=== PATIENT | male | born 1950 | race Caucasian/White ===

== ENCOUNTER → 2017-03-08 | Outpatient (CLI) | payer OTHER ==
[~2017-03-08] MED LIST: AMLO-110 PO; ATEN50TA8 PO; LEVO150T9 PO; PRLSR20 PO
== END | disposition home or self-care (01) ==
LOC: C.LABSPEC 17:48
DX: K13.0 Diseases of lips (principal)

== ENCOUNTER 2017-04-04 05:10 | Day surgery (SDC) | payer OTHER ==
[2017-03-26 14:18] VITALS: BMI 25.0
--- NOTE | 2017-03-26 14:50 | PAT Medication Instructions ---
Service Date March 26, 2017. Current Home Medication List Amlodipine (Norvasc), 5 MG PO QPM Atenolol (Tenormin), 50 MG PO QPM Levothyroxine Sodium (Levothyroxine Sodium), 1 TAB PO QAM Omeprazole (Prilosec), 20 MG PO BID Medication Instructions For Your Scheduled Surgery - Take the following medications the morning of surgery with a sip of water: Omeprazole (Prilosec), 20 MG PO BID Levothyroxine Sodium (Levothyroxine Sodium), 1 TAB PO QAM - Take the following medications as scheduled the night before surgery: Omeprazole (Prilosec), 20 MG PO BID .Amlodipine (Norvasc), 5 MG PO QPM Atenolol (Tenormin), 50 MG PO QPM If you have any questions please call us at [phone] or [phone] ( [place]) or [phone]
[2017-03-26 15:20] LABS: BASO % 0.3 %; BASO ABS # 0.03 K/uL (0-0.2); COMPLETE YES; HEMATOCRIT 44.7 % (42-52); IG% 0.2 %; LYMPH % 10.9 %; LYMPH ABS # 0.95 K/uL (1.2-3.4); MEAN CELL VOLUME 99.8 fL (80-100); MEAN CORPUSCULAR HEMOGLOBIN 32.1 pg (25-34); MEAN CORPUSCULAR HGB CONC 32.2 g/dl (32-36); MEAN PLATELET VOLUME 10.3 fL (7.4-10.4); MONO % 15.6 %; PLATELET COUNT 186 K/uL (130-400); RED BLOOD COUNT 4.48 M/uL (4.7-6.1)
[2017-03-26 15:56] LABS: BUN/CREATININE RATIO 21.1 (10-20); CALCIUM 9.4 mg/dl (8.5-10.1); CREATININE 0.66 mg/dl (0.60-1.40); POTASSIUM 4.8 mmol/L (3.5-5.1)
[~2017-04-04] VITALS: Ht 182.9 cm; Wt 85.3 kg
[2017-04-04 05:38] VITALS: BP 165/77; PULSE 69; TEMP 36.6; O2SAT 96; Ht 182.9 cm; Wt 85.3 kg
[2017-04-04] MEDS ORDERED: CEFAZOLIN 2000 MG/60 ML D5W IV SCH (06:00)
[2017-04-04] MEDS ORDERED: LACTATED RINGER'S 1000ML 1,000 ML IV SCH (06:00)
[2017-04-04] MEDS ORDERED: FENTANYL CITRATE INJ 50 MCG/1 ML 2 ML VIAL ONE ×2 (06:23→08:21)
[2017-04-04] MEDS ORDERED: PROPOFOL IV EMULSION 10 MG/ML 20 ML VIAL IV ONE ×3 (06:23→08:09)
[2017-04-04] MEDS ORDERED: MIDAZOLAM HCL 1 MG/ML 2ML VIAL ONE (06:23)
--- NOTE | 2017-04-04 06:33 | History & Physical Bridge Note ---
H&P Re-Evaluation Bridge Note: I have examined the patient, reviewed the History & Physical and in the interval since the performance of the History & Physical I have noted the following changes of clinical significance: No changes noted
[2017-04-04] MEDS ORDERED: LIDOCAINE/EPINEPHRINE 1% 20 ML VIAL ONE (07:07)
[2017-04-04] MEDS ORDERED: DEXAMETHASONE SOD INJ 4 MG/ML VIAL ONE (07:39)
[2017-04-04] MEDS ORDERED: ONDANSETRON INJ 2 MG/ML 2 ML VIAL ONE (07:39)
[2017-04-04] MEDS ORDERED: LIDOCAINE HCL 2% 2 ML VIAL (20MG/ML) ONE (07:39)
[2017-04-04] MEDS ORDERED: EpHEDrine SULFATE INJ 50 MG/ML AMP ONE (07:52)
[2017-04-04] MEDS ORDERED: KETAMINE HCL INJ 50 MG/ML 10 ML VIAL ONE (08:02)
[2017-04-04] MEDS ORDERED: BACITRACIN OINT 15 GM TUBE ONE (08:13)
--- NOTE | 2017-04-04 08:41 | [facility] Operative Report ---
Operative Report Operative Date April 04, 2017. Pre-Operative Diagnosis Left lower lip lesion Post-Operative Diagnosis SAME Procedure(s) Performed EXCISION OF LEFT LOWER LIP LESION WITH MUCOSAL ADVANCEMENT CLOSURE Surgeon DR Lokesh Briggs Curriculum Development Manager Surgeon(s) Jennifer Flores PA-C Estimated Blood Loss 10ML Findings 1.5CM LEFT LOWER LIP MUCOSAL LESION; NEGATIVE FROZEN MARGINS Specimens Frozen 1: Left lower lip incisional biopsy-deep margin Frozen 2: Left lower lip incisional biopsy-lateral margin Frozen 3: Left lower lip incisional biopsy-medial margin Frozen 4: Left lower lip incisional biopsy-superior margin Frozen 5: Left lower lip incisional biopsy-Inferior margin A: Left lower lip incisional biopsy,double silk tie -medial margin, single silk tie-lateral margin, double vicryl tie-superior margin, single vicryl tie-inferior margin I attest to the content of the Intraoperative Record and any orders documented therein. Any exceptions are noted below.
--- NOTE | 2017-04-04 08:43 | Discharge Instructions ---
Discharge Instructions Date of Service April 04, 2017. Admission Reason for Admission: Lip Lesion Discharge Discharge Diagnosis / Problem: SAME Discharge Goals Goal(s): Therapeutic intervention Activity Recommendations Activity Limitations: as noted below LIGHT ACTIVITY FOR 1 WEEK; NO DRIVING WHILE ON NORCO . Current Hospital Diet Patient's current hospital diet: Discharge Diet Recommended Diet: Regular Diet Diet Texture: Dental Soft (bite-sized) Procedures Procedures Performed: Left Lower Lip Lesion Excisional Biopsy Pending Studies Studies pending at discharge: no Medical Emergencies . Who to Call and When: Medical Emergencies: If at any time you feel your situation is an emergency, please call 911 immediately. . Non-Emergent Contact Non-Emergency issues call your: Surgeon . . "Provider Documentation" section prepared by Lokesh Briggs. . VTE Core Measure Inpt VTE Proph given/why not?: SCD's
[2017-04-04] MEDS ORDERED: HYDROCODONE/ACETAMOPHEN 5/325MG TAB PO PRN (08:45)
[2017-04-04] MEDS ORDERED: FLUMAZENIL 0.1 MG/1 ML 10 ML VIAL IV PRN (09:00)
[2017-04-04] MEDS ORDERED: EpHEDrine SULFATE INJ 50 MG/ML AMP IV PRN (09:00)
[2017-04-04] MEDS ORDERED: PROMETHAZINE HCL INJ 12.5 MG in SODIUM CHLORIDE 0.9% 50ML 50 ML IV PRN (09:00)
[2017-04-04] MEDS ORDERED: LABETALOL HCL IV 5 MG/ML 20ML IV PRN (09:00)
[2017-04-04] MEDS ORDERED: ATROPINE SULFATE 0.1 MG/ML 5ML SYR IV PRN (09:00)
[2017-04-04] MEDS ORDERED: ONDANSETRON INJ 2 MG/ML 2 ML VIAL IV PRN (09:00)
[2017-04-04] MEDS ORDERED: NALOXONE HCL 0.4 MG/1 ML VIAL/CARP IV PRN (09:00)
[2017-04-04] MEDS ORDERED: LABETALOL HCL IV 5 MG/ML 20ML IV ONE ×2 (09:02→09:30)
[2017-04-04] MEDS ORDERED: NURSING VERBAL MED ORDER ONE (09:30)
--- NOTE | 2017-04-04 09:39 | OPERATIVE REPORT ---
DATE OF OPERATION: 04/04/2017 PREOPERATIVE DIAGNOSIS: Left lower lip lesion. POSTOPERATIVE DIAGNOSIS: Left lower lip lesion. PROCEDURE: Excision of left lower lip lesion with mucosal advancement flap closure. SURGEON: Dr. Briggs. SAS ETL DEVELOPER: Jennifer Flores PA-C. ESTIMATED BLOOD LOSS: 10 mL FINDINGS: 1.5 cm long by 1 cm tall mucosal irregularity involving the left lower lip. SPECIMENS: 1. Left lower lip excisional biopsy for permanent pathological assessment. 2. Superior, inferior, medial, lateral, and deep frozen section margins. DRAINS: None. COMPLICATIONS: None. 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 An incisional biopsy in the office showed cytological atypia without definitive carcinoma, but complete excision of the lesion was recommended by pathology. He, therefore, presents for the above-mentioned procedure on an outpatient elective basis. DETAILS OF PROCEDURE: After informed consent had been obtained from the patient, the patient was wheeled to the operating room and placed on the operating room table in the supine position. Monitors were placed after induction of general endotracheal anesthesia, a marking pen was used to outline the planned elliptical incision around the 1.5 cm long by 1 cm tall mucosal irregularity involving the left lower lip. The inferior aspect of the elliptical incision involved the vermilion border of the lower lip. Care was taken to ensure 5 mm margins circumferentially around the above-mentioned lesion. A total of 3 mL of 1% lidocaine with 1:100,000 epinephrine was then used to inject the mucosa and submucosa overlying the planned incision site. The skin on the lip, chin, and neck were then prepped and draped in the usual sterile fashion. A #15 scalpel was then used to make the elliptical incision through the mucosa, submucosa, and down to the level of the orbicularis honey musculature. The lesion was removed in its entirety and measured approximately 3 cm in length by approximately 1.5 cm in height. The orienting sutures were placed on the left lower lip excisional biopsy which was sent off for permanent pathologic assessment. The mucosal margins from the superior, inferior, medial, and lateral mucosa were then taken as well as a deep muscular margin as well. These were sent off for frozen section diagnosis. Bipolar electrocautery was used to achieve adequate hemostasis. Using a curved tenotomy scissors, mucosal advancement flap was raised along the lip circumferentially. Care was taken to elevate the mucosa at least 1.5 times the height and length of the defect. The mucosal edges were then reapproximated in a tension-free manner using several simple interrupted 4-0 chromic sutures. The wound was cleansed and dried. Antibiotic ointment was applied to the incision line. Frozen section diagnosis of all of the 5 above-mentioned margins was negative. The oral cavity and oropharynx were then suctioned. An orogastric tube was placed and the stomach was suctioned free of air and stomach contents. This marked the end of the case. The patient tolerated the procedure well and there were no apparent complications. The patient was extubated and transferred to the recovery room in stable condition. I attest to the content of the Intraoperative Record and any orders documented therein. Any exceptio ns are noted below.
--- NOTE | 2017-04-04 09:43 | Anesthesiology Progress Note ---
Anesthesia Post Op Note Date & Time April 04, 2017 at 09:44 Vital Signs Pain Intensity: 0 Vital Signs Past 12 Hours Date Time Temp Pulse Resp B/P Pulse Ox O2 Delivery O2 Flow Rate FiO2 04/04/17 09:40 36.8 86 16 153/79 96 Room Air 04/04/17 09:30 36.8 89 16 155/90 96 Room Air 04/04/17 09:20 89 16 153/95 93 Room Air 04/04/17 09:10 92 16 170/90 94 Room Air 04/04/17 09:00 97 16 177/99 100 Mask 10 04/04/17 08:51 36.2 99 16 193/104 100 Mask 10 04/04/17 05:38 36.6 69 18 165/77 96 Room Air Notes Mental Status: alert / awake / arousable, participated in evaluation Pt Amnestic to Procedure: Yes Nausea / Vomiting: adequately controlled Pain: adequately controlled Airway Patency, RR, SpO2: stable & adequate BP & HR: stable & adequate Hydration State: stable & adequate Anesthetic Complications: no major complications apparent
[2017-04-04 09:45] VITALS: BP 141/70; PULSE 83; TEMP 36.7; O2SAT 96
[2017-04-04 10:15] VITALS: BP 138/65; PULSE 85; TEMP 36.7; O2SAT 93
[2017-04-04 10:45] VITALS: BP 138/65; PULSE 85; TEMP 36.4; O2SAT 93
== END 2017-04-04 11:10 | disposition home or self-care (01) ==
LOC: C.ACU 05:10
DX: C44.02 Squamous cell carcinoma of skin of lip (principal); K13.0 Diseases of lips; I10 Essential (primary) hypertension; E03.9 Hypothyroidism, unspecified; F17.200 Nicotine dependence, unspecified, uncomplicated; Z90.89 Acquired absence of other organs; Z98.890 Other specified postprocedural states; Z98.818 Other dental procedure status; Z68.25 Body mass index [BMI] 25.0-25.9, adult; Z85.828 Personal history of other malignant neoplasm of skin